=== PATIENT | male | born 1980 | race Hispanic/Latino ===

== ENCOUNTER 2018-06-03 10:31 | Inpatient (IN) | payer MEDICAID ==
--- NOTE | 2018-06-03 10:44 | ED PDOC ---
Psych Transfer Clearance - Clearance Statement Clearance Statement: Reviewed vital signs, lab results and transfer papers. Patient clinically stable for psychiatric admission.
[2018-06-03 10:53] VITALS: O2SAT 99
[2018-06-03] MEDS ORDERED: Divalproex 500 mg ER (ONCE DAILY formulation) PO STA (12:36)
[2018-06-03] MEDS ORDERED: Alum-Mag Hydrox-Simethicone Susp (30 mL) PO PRN (12:37)
[2018-06-03] MEDS ORDERED: DiphenhydrAMINE 50 mg/ml Inj IM PRN (12:37)
[2018-06-03] MEDS ORDERED: Magnesium Hydroxide Susp 30 ml UD PO PRN (12:37)
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
--- NOTE | 2018-06-03 15:29 | PCM.BM ---
<Claribel Lorenz - Last Filed: 06/03/18 15:27> Treatment Plan Problems - Problems identified on initial assessmt Altered Thought Process Date Initiated: 06/03/18 Time Initiated: 15:28 Assessment reference: NA Status: Active Ineffective Impulse Control Date Initiated: 06/03/18 Time Initiated: 15:30 Assessment reference: NA Status: Active Treatment assets and liabiliti Patient Assests: cooperative, ADL independent Patient Liabilities: poor support system, medical problems - Milieu Protocol Maintain good personal hygiene: daily Encourage regular showers, every shift Remind patient to perform daily oral care, every shift Assist patient to perform ADL's Conduct patient checks and document Observation sheet: Q15 minutes Maintain personal safety: every shift Educate patient to report safety concerns to staff, every shift Monitor environment for contraband/sharps Medication safety: Monitor for expected outcome, potential side effects: every shift, Assess barriers to learning: every shift, Assess readiness for medication education: every shift Milieu Narrative: start depakote 1000mg increase gradually and monitor depakote level CBT group and supportine therapy internal medicine consult for seizure disorder Discharge/Continuing Care - Treatment Team Participation Patient/Family/SO Statement: start depakote 1000mg increase gradually and monitor depakote level CBT group and supportine therapy internal medicine consult for seizure disorder <Esthela Patel - Last Filed: 06/04/18 14:57> Treatment assets and liabiliti Patient Assests: adapts well, cooperative, ADL independent, good support system, good past tx response Patient Liabilities: medical problems (seizures/diabetes) Family Contact Family involvement: Family/SO is involved Family contact: Patient agrees to contact, Family has been contacted by patient, Telephone contact initiated by staff Family contact name: Lluvia(mother) Family contacted how many times per week?: 2 Family contact comment: ([phone]) - Goals for Treatment Patient goals for treatment: Patient to continue stabilization on 3NP through medication management and group/supportive therapy to address sxs of depression, eliminate sxs of familia and eliminate aggressive bxs. Patient to be encouraged to attend groups regularly to promote self-awareness, compliance, and improve insight, anger management, coping skills and self-esteem. Patient to be provided with referral for appropriate level of aftercare to reduce risk of future hospitalizations and ensure safety in the community. Discharge/Continuing Care - Education Needs Education Needs: Family Medication, Family Diagnosis/Disease Process, Family Community resources, Family Aftercare Safety Plan, Patient Medication, Patient Diagnosis/Disease Process, Patient Coping Skills, Patient Anger Management skills, Patient Community resources, Patient Aftercare Safety Plan - Discharge Discharge Criteria: Tolerates medication w/o severe side effects, Free of Suicidal thoughts, Free of agitation, Normal sleep pattern, Ability to care for self, Reduction of target symptoms Discharge to:: Home, With Family - Treatment Team Participation Patient/Family/SO Statement: 06/04/18 14:59 Patient attended tx team this morning to discuss progress on 3NP and tx goals. Pt. reported feeling better but was unable to elaborate on sxs. Pt. somewhat guarded when discussing precursors to hospitalization. Pt. presented as internally preoccupied and with thought blocking. Pt presented with underproductive speech. Responses often delayed. Affect constricted and incongruent to mood. Pt. reports auditory hallucinations but denies AH being command in nature. Pt. remains socially withdrawn but is visible on 3NP and observed socializing appropriately with select peers and staff. Medication management discussed. Discussed with Family/SO: Yes Was Patient/Family/SO present at Treatment Team Meeting: Yes <Philomena Hargrove - Last Filed: 06/05/18 11:34> - Diagnosis (1) Depression (emotion) Status: Acute Interventions: psychotherapy, pharmacotherapy 06/04/18 08:35
[2018-06-03] MEDS ORDERED: Divalproex 250 mg DR(BID formulation) PO SCH (17:00)
[2018-06-03] MEDS ORDERED: Insulin Lispro (humaLOG) 100 Units/ml Inj SC STA (18:00)
[2018-06-03] MEDS: Insulin Lispro (humaLOG) 100 Units/ml Inj SC SCH ×3 (18:01→21:03)
[2018-06-03] MEDS: Insulin Detemir 100 Units/ml Inj SC SCH (21:05)
[2018-06-03] MEDS: Divalproex 500 mg DR(BID formulation) PO SCH (21:07)
[2018-06-03] MEDS ORDERED: Insulin Lispro (humaLOG) 100 Units/ml Inj SC SCH (22:00)
[2018-06-03] MEDS ORDERED: Divalproex 500 mg DR(BID formulation) PO SCH (22:00)
[2018-06-04] MEDS ORDERED: Glucagon Recombinant 1 mg Inj IM ONE (07:04)
[2018-06-04] MEDS: Insulin Lispro (humaLOG) 100 Units/ml Inj SC SCH ×7 (07:09→22:08)
[2018-06-04 08:25] LABS: T4 5.13 ug/dl (5.5-11.0)
[2018-06-04] MEDS: Divalproex 500 mg DR(BID formulation) PO SCH ×2 (09:57→21:05)
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
[2018-06-04] MEDS: Insulin Detemir 100 Units/ml Inj SC SCH (21:07)
[2018-06-05] MEDS: Divalproex 500 mg DR(BID formulation) PO SCH ×2 (08:33→21:01)
[2018-06-05] MEDS: Insulin Lispro (humaLOG) 100 Units/ml Inj SC SCH ×7 (08:34→23:07)
[2018-06-05] MEDS: Insulin Detemir 100 Units/ml Inj SC SCH (21:04)
[2018-06-06] MEDS: Divalproex 500 mg DR(BID formulation) PO SCH ×2 (08:59→21:08)
[2018-06-06] MEDS: Insulin Lispro (humaLOG) 100 Units/ml Inj SC SCH ×8 (09:00→21:15)
--- NOTE | 2018-06-06 15:13 | PCM.PYCHPN ---
Psychiatric Progress Note - Psychiatric Progress Note Patient seen today, length of contact: pt evaluated , discussed with team chart reviewed Patient Chief Complaint: I feel better with my current medicine Problems Identified/Issues Discussed: pt evaluated ,reported mood more stable, denied any current anger episodes, no behavioral disturbances reported by staff, reported partial clearing off of the auditory hallucinations, appears less internally preoccupied , discussed increasing abilify to 15mg and following up on depakote level, no reported side effects of medications pt agreed to attend IOP on discharge denied any current command hallucinations, denied suicidal or homicidal ideation Medical Problems: multiple hospitalizations, hx of non compliance DSM 5 Symptoms Update: bipolar disorder MRE mixed severe with psychotic features impulse control disorder Medication Change: Yes (increase abilify gradually) Medical Record Reviewed: Yes Mental Status Examination - Cognitive Function Orientation: Person, Place Memory: Intact Attention: WNL Concentration: WNL Association: WNL Fund of Knowledge: Poor Decription of patient's judgement and insights: partial insight poor judgment - Mood Mood: Anxious - Affect Affect: Constricted - Speech Speech: Soft - Formal Thought Process Formal Thought Process: Hallucinations, Circumstantial Psychotic Thoughts and Behaviors: pt reported non command auditory hallucinations - Suicidal Ideation Suicidal Ideation: No - Homicidal Ideation Homicidal Ideation: No Goal/Treatment Plan - Goal/Treatment Plan Need for Continued Stay: Discharge may exacerbated symptoms, Severe functional impairment Progress Toward Problem(s) and Goals/Treatment Plan: depakote 1500mg daily, monitor depakote level on 06/08/18 abilify 15mg daily CBT group and supportive therapy follow up by internal medicine for seizure disorder and juvenile diabetes Estimated Date of D/C: 06/09/18
[2018-06-06] MEDS: Insulin Detemir 100 Units/ml Inj SC SCH (21:08)
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
[2018-06-07 08:09] LABS: ALB/GLOB RATIO 1.2 (1.0-2.1); ALBUMIN 3.6 g/dL (3.5-5.0); ALT/SGPT 25 U/L (21-72); AST/SGOT 24 U/L (17-59); BLOOD UREA NITROGEN 17 mg/dl (9-20); CALCIUM 8.9 mg/dL (8.4-10.2); GFR NON-AFRICAN AMERICAN > 60; HDL CHOLESTEROL 56 MG/DL (30-70)
[2018-06-07 08:20] LABS: LDL CHOLESTEROL 92 mg/dL (0-129)
[2018-06-07 08:26] LABS: T4 5.28 ug/dl (5.5-11.0)
[2018-06-07] MEDS: Insulin Lispro (humaLOG) 100 Units/ml Inj SC SCH ×7 (08:43→21:37)
[2018-06-07] MEDS: Divalproex 500 mg DR(BID formulation) PO SCH ×2 (08:50→21:15)
--- NOTE | 2018-06-07 10:10 | PCM.PYCHPN ---
Psychiatric Progress Note - Psychiatric Progress Note Patient seen today, length of contact: Pt evaluated, case discussed w/ team, chart reviewed Patient Chief Complaint: "I'm getting better." Problems Identified/Issues Discussed: Patient is calm and cooperative w/ interview. He reports that his mood is becoming more stable. He reports less AH. He denies acute VH/SI/HI. He reports that he talks to himself at times, but has been doing that less frequently. He is oddly related at times, but has not have any acute behavioral or anger issues. No adverse effects to medications reported. Medication Change: No Medical Record Reviewed: Yes Consults ordered or reviewed: Medicine consult, Endocrinology consult Mental Status Examination - Cognitive Function Orientation: Person, Place, Situation Memory: Intact Attention: WNL Concentration: WNL Association: WNL Fund of Knowledge: Poor Decription of patient's judgement and insights: Improving I/J - Mood Mood: Anxious - Affect Affect: Constricted - Speech Speech: Soft - Formal Thought Process Formal Thought Process: Hallucinations, Circumstantial Psychotic Thoughts and Behaviors: Intermittent AH; denies current AH - Suicidal Ideation Suicidal Ideation: No - Homicidal Ideation Homicidal Ideation: No Goal/Treatment Plan - Goal/Treatment Plan Need for Continued Stay: Discharge may exacerbated symptoms, Severe functional impairment Progress Toward Problem(s) and Goals/Treatment Plan: Bipolar Disorder w/ Psychotic Features -Continues current medications -Medicine and Endocrinology consults -Psychoeducation -Individual and group therapy -Disposition planning Estimated Date of D/C: 06/09/18
[2018-06-07] MEDS: Insulin Detemir 100 Units/ml Inj SC SCH (21:36)
--- NOTE | 2018-06-07 23:02 | PN ---
DATE: 06/07/2018 LOCATION: Room 321. SUBJECTIVE: This is a 37-year-old male with recent uncontrolled type 1 insulin-dependent diabetes presenting here with behavioral and mood disturbances, currently undergoing closer psychiatric evaluation and management and is also being followed closely for metabolic management. His chemistries today showed a BUN of 17, sodium 139, potassium 4, chloride 103, CO2 of 28, glucose 164, and creatinine 0.7. His thyroid studies showed a T4 of 5.28 with a TSH of 1.79. His glucose values today have ranged from 167 to 249 mg/dL. ASSESSMENT: This is a 37-year-old male with uncontrolled and decompensated type 1 insulin-dependent diabetes, now being followed closely for metabolic management. He also has underlying chronic schizoaffective disorder presenting here with acute behavioral and mood disturbances, currently undergoing closer psychiatric evaluation and management. PLAN OF MANAGEMENT: We will modify once again his basal and bolus insulin regimen which is a more physiologic dosing combination to optimize metabolic control. We will increase his Humalog to 8 units subcutaneous t.i.d. before meals to start today. We will also increase his basal insulin with Levemir to be given as 18 units subcutaneous at bedtime daily to start tonight. We will titrate incrementally as indicated to optimize metabolic control. We will also continue his low-dose correction scale using Humalog insulin as given. We will obtain serial chemistries and supplement accordingly as needed. We will follow. Rosa Wesley MD
[2018-06-08] MEDS: Divalproex 500 mg DR(BID formulation) PO SCH ×2 (09:02→21:08)
[2018-06-08] MEDS: Insulin Lispro (humaLOG) 100 Units/ml Inj SC SCH ×7 (09:04→21:09)
--- NOTE | 2018-06-08 09:41 | PCM.PYCHPN ---
Psychiatric Progress Note - Psychiatric Progress Note Patient seen today, length of contact: Pt evaluated, case discussed w/ team, chart reviewed Patient Chief Complaint: "I'm getting better." Problems Identified/Issues Discussed: No significant events overnight. Patient is calm and cooperative w/ interview. He reports that his mood is stable. He continues to report intermittent AH, but states they are less frequent. No CAH/VH/SI/HI. He reports that he has le arned to talk to himself due to a lack of having friends. No behavioral or anger issues. No adverse effects to medications reported. Medication Change: No Medical Record Reviewed: Yes Consults ordered or reviewed: Medicine consult, Endocrinology consult Mental Status Examination - Cognitive Function Orientation: Person, Place, Situation Memory: Intact Attention: WNL Concentration: WNL Association: WNL Fund of Knowledge: [facility] Decription of patient's judgement and insights: Improving I/J - Mood Mood: Anxious - Affect Affect: Constricted - Speech Speech: Soft - Formal Thought Process Formal Thought Process: Hallucinations, Circumstantial Psychotic Thoughts and Behaviors: Intermittent AH; denies current AH - Suicidal Ideation Suicidal Ideation: No - Homicidal Ideation Homicidal Ideation: No Goal/Treatment Plan - Goal/Treatment Plan Need for Continued Stay: Discharge may exacerbated symptoms, Severe functional impairment Progress Toward Problem(s) and Goals/Treatment Plan: Bipolar Disorder w/ Psychotic Features -Continues current medications -Medicine and Endocrinology consults -Psychoeducation -Individual and group therapy -Disposition planning
[2018-06-08] MEDS: Insulin Detemir 100 Units/ml Inj SC SCH (21:08)
--- NOTE | 2018-06-09 01:13 | PN ---
DATE: 06/08/2018 ENDOCRINOLOGY FOLLOWUP NOTE LOCATION: Room 321. This is a 37-year-old male, admitted with mood and behavioral changes with underlying schizoaffective disorder, undergoing closer psychiatric evaluation and management and is also being followed closely for metabolic management. His glycemic levels are fluctuating but improved, and the glucose values overnight have ranged from 164 to 167 to 187 and 256 mg/dL. His chemistry showed a BUN of 17, sodium 139, potassium 4, chloride 103, CO2 of 28, glucose 164 and creatinine 0.7. His thyroid study showed a TSH of 1.79 and a T4 of 5.28. So at this time, we will continue the same basal and bolus insulin regimen to allow for dose equilibration and keep him on the Humalog given as 8 units t.i.d. before meals as ordered. We will continue the Levemir given as 18 units subcu at bedtime daily as given. We will continue the low-dose correction scale using Humalog insulin as ordered. We will obtain serial chemistries and supplement accordingly as needed. We will follow. Rosa Wesley MD
[2018-06-09] MEDS: Insulin Lispro (humaLOG) 100 Units/ml Inj SC SCH ×7 (08:45→21:15)
[2018-06-09] MEDS: Divalproex 500 mg DR(BID formulation) PO SCH ×2 (08:45→21:06)
--- NOTE | 2018-06-09 12:29 | PCM.PYCHPN ---
Psychiatric Progress Note - Psychiatric Progress Note Patient seen today, length of contact: Pt evaluated, case discussed w/ team, chart reviewed Patient Chief Complaint: I have better control on my temper Problems Identified/Issues Discussed: pt evaluated ,stated mood is stable, no current anger episodes, , reported clearing off of the auditory hallucinations, no rported side effects of medications depakote level noted to be 50, pt in agreement to start IOP on discharge denied any current command hallucinations, denied suicidal or homicidal ideation Medical Problems: multiple hospitalizations, hx of non compliance DSM 5 Symptoms Update: schizoaffective disorder Medication Change: No Medical Record Reviewed: Yes Mental Status Examination - Cognitive Function Orientation: Person, Place, Situation Memory: Intact Attention: WNL Concentration: WNL Association: WNL Fund of Knowledge: WNL - Mood Mood: Neutral - Affect Affect: Constricted - Speech Speech: Soft - Formal Thought Process Formal Thought Process: Circumstantial - Suicidal Ideation Suicidal Ideation: No - Homicidal Ideation Homicidal Ideation: No Goal/Treatment Plan - Goal/Treatment Plan Need for Continued Stay: Discharge may exacerbated symptoms, Severe functional impairment Progress Toward Problem(s) and Goals/Treatment Plan: depakote 1500mg daily, depakote level 50.2 abilify 15mg daily CBT group and supportive therapy Estimated Date of D/C: 06/09/18
[2018-06-09] MEDS ORDERED: Insulin Detemir 100 Units/ml Inj SC SCH (22:00)
--- NOTE | 2018-06-10 02:08 | PN ---
DATE: 06/09/2018 LOCATION: Room 321. SUBJECTIVE: This is a 37-year-old male with recent uncontrolled type 1 insulin-dependent diabetes, now being followed closely for metabolic management. His glycemic levels are fluctuating but improved, and the glucose values today have ranged from 173 to 167 and 246 mg/dL. LABORATORY DATA: His latest chemistry showed a BUN of 17, sodium 139, potassium 4, chloride 103, CO2 of 28, glucose 164 and creatinine 0.7. PLAN: So at this time we will modify once again his basal and bolus insulin regimen and increase the Humalog to 10 units subcu t.i.d. before meals, to start today. We will also increase the basal insulin with Levemir to be given as 20 units subcu at bedtime daily as ordered. We will obtain serial chemistries and supplement accordingly as needed. We will follow. Rosa Wesley MD
[2018-06-10] MEDS: Insulin Lispro (humaLOG) 100 Units/ml Inj SC SCH ×2 (08:38→08:39)
[2018-06-10 09:08] VITALS: BP 110/77; PULSE 93; RESP 20; TEMP 97.2
--- NOTE | 2018-06-10 12:39 | PCM.PYCHDC ---
Mental Status Examination - Mental Status Examination Orientation: Person, Place, Situation Memory: Intact Mood: Neutral Affect: Broad Speech: Appropriate Attention: WNL Concentration: WNL Association: WNL Fund of Knowledge: WNL Formal Thought Process: No Impairment Description of patient's judgement and insight: partial insight and fair judgment Psychotic Thoughts and Behaviors: pt reported, clearing off of the non command auditory hallucinations, no psychotic symptoms elicited Suicidal Ideation: No Current Homicidal Ideation?: No Discharge Summary - Discharge Note Reason for Hospitalization: pt is 37 ys old male with long history of bipolar disorder, pt has been non compliant with medication or follow up for a whole year, started decompensating with poor sleep, increased energy , irritability, verbally and physically aggressive towards mother , on day of evaluation pt became destructive to property, throwing furniture in the house, mother called police pt on the unit presented with increased irritability edginess and anger, reported non command auditory hallucinations, , denied suicidal or homicidal id eation Laboratory Data: Abnormal Lab Results 06/07/18 06/08/18 06/08/18 07:00 06:21 12:14 POC Glucose (mg/dL) 178 H 218 H Thyroperoxidase Ab <1 Thyroglobulin Antibody <1 06/08/18 06/08/18 06/09/18 16:32 19:49 06:01 POC Glucose (mg/dL) 53 L 312 H 172 H Thyroperoxidase Ab Thyroglobulin Antibody 06/09/18 06/09/18 06/09/18 11:54 16:56 20:21 POC Glucose (mg/dL) 133 H 66 119 H Thyroperoxidase Ab Thyroglobulin Antibody 06/10/18 06:38 POC Glucose (mg/dL) 207 H Thyroperoxidase Ab Thyroglobulin Antibody Consultations:: List each consultation separately and include: 1. Reason for request. 2. Findings. 3. Follow-up Summary of Hospital Course include:: 1. Description of specific treatment plan utilized for patients during their course of treatmen. 2. Summarize the time- course for resolution of acute symptoms and/or regressed behaviors. 3. Describe issues identified and worked on during hospitalization. 4. Describe medication utilized. 5. Describe medical problems identified and treated. 6. Reassessment of suicide risk Summary of Hospital Course: pt on admission appeared internally preoccupied, reported non command auditory hallucinations, presented with irritability, edginess, irritable mood and affect pt was started on abilify , it was increased gradually to 15mg, also started on depakote, it was increased to 1500mg Internal medicine consult was requested for diabetes and seizure disorder, pt was placed in insulin and tegretol treatment plan was discussed with mother upon pt consent pt gradually reported clearing off of the auditory hallucinations, presented with more stable affect, no episodes of anger or behavioral disturbances, pt attended groups, was compliant with treatment, depakote level noted 50.2, no reported side effects of medications CBT group and supportive therapy provided, on discharge mental status was stable , pt denied any current suicidal or homicidal ideation denied perceptual disturbances follow up arranged by social insurance adviser at [facility] IOP - Diagnosis (1) Depression (emotion) Current Visit: Yes Status: Acute - Final Diagnosis (DSM 5) Condition upon Discharge: GOOD DSM 5: schizoaffective disorder bipolar type seizure disorder juvenille diabetes Disposition: HOME/ ROUTINE Follow-up Treatment Plan: depakote 1500mg daily, depakote level 50.2 abilify 15mg daily CBT group and supportive therapy Prescriptions/Medication Reconciliation: ARIPiprazole [Abilify] 15 mg PO DAILY 30 Days #90 tab Atorvastatin [Lipitor] 10 mg PO DAILY 30 Days #30 tab carBAMazepine [Tegretol] 200 mg PO BID 30 Days #60 tab Divalproex [Depakote DR(*BID*)] 1,000 mg PO HS 30 Days #60 tcp Divalproex [Depakote DR(*BID*)] 500 mg PO DAILY 30 Days #30 tcp traZODone [Desyrel] 100 mg PO HS PRN 30 Days #30 tab PRN Reason: Insomnia - Antipsychotic Medications Pt discharged on 2 or more routine antipsychotic medications: No
--- NOTE | 2018-06-10 23:26 | PN ---
DATE: 06/10/2018 ENDO FOLLOWUP NOTE LOCATION: Room 321. SUBJECTIVE: This is a 37-year-old male with chronic schizoaffective disorder, presenting here for closer psychiatric evaluation and management of behavioral and mood disturbances, and is also being followed closely for metabolic management. His glycemic levels are fluctuating, but improved and the glucose values have ranged from 119-207 mg/dL. ASSESSMENT AND PLAN: So at this time, we will continue the same basal and bolus insulin regimen to allow for dose equilibration and keep him on the Humalog given as 10 units t.i.d. before meals as ordered. We will also continue the Levemir given as 20 units subcutaneous at bedtime daily as given. We will titrate incrementally as indicated to optimize metabolic control. We will follow and advise accordingly. Rosa Wesley MD
== END 2018-06-10 12:37 | disposition home or self-care (01) | DRG 430 ==
LOC: H.ER 10:31 → H.ERHOLD 10:43 → H.PSYCH 11:13
PROVIDERS: ADMIT Psychiatry & Neurology Psychiatry; ATTEND Psychiatry & Neurology Psychiatry
PROC: GZHZZZZ Group Psychotherapy (ICD-10-PCS; principal; 2018-06-03)
PROC: GZ58ZZZ Individual Psychotherapy, Cognitive-Behavioral (ICD-10-PCS; 2018-06-03)
PROC: GZ56ZZZ Individual Psychotherapy, Supportive (ICD-10-PCS; 2018-06-03)
DX: F25.0 Schizoaffective disorder, bipolar type (principal); E10.65 Type 1 diabetes mellitus with hyperglycemia; I10 Essential (primary) hypertension; Z91.14 Patient's other noncompliance with medication regimen; Z91.19 Patient's noncompliance with other medical treatment and regimen; G40.909 Epilepsy, unspecified, not intractable, without status epilepticus; E78.5 Hyperlipidemia, unspecified